=== PATIENT | female | born 1955 | race Two or more races ===

== ENCOUNTER → 2021-07-17 11:16 | Outpatient (BNVA) | payer MEDICARE, SELFPAY | PROVIDERS: PCP Internal Medicine; Visit Provider Dietitian, Registered | DX: E11.9 Type 2 diabetes mellitus without complications (principal) | CPT/HCPCS: 97802 ==

== ENCOUNTER → 2021-09-08 09:14 | Outpatient (BNVA) | payer MEDICARE, SELFPAY | PROVIDERS: PCP Internal Medicine; Visit Provider Dietitian, Registered | DX: E11.9 Type 2 diabetes mellitus without complications (principal) | CPT/HCPCS: 97803 ==

== ENCOUNTER 2022-02-16 17:23 | Outpatient (REF) | payer MEDICARE, SELFPAY ==
[2022-02-16 18:17] LABS: Influenza A PCR NEGATIVE (Negative); Influenza B PCR NEGATIVE (Negative); Resp Syncy Virus RNA Qual PCR NEGATIVE (Negative); SARS COV2 PCR INHOUSE NEGATIVE (Negative)
== END 2022-02-16 17:24 | disposition home or self-care (01) ==
LOC: HO.LNP 17:23
PROVIDERS: Visit Provider Nurse Practitioner Family
DX: Z20.822 Contact with and (suspected) exposure to COVID-19 (principal); J06.9 Acute upper respiratory infection, unspecified
CPT/HCPCS: 0241U

== ENCOUNTER 2022-04-21 12:22 | Outpatient (REF) | payer MEDICARE, SELFPAY ==
--- NOTE | ~2022-04-21 | XR_ITS ---
EXAMINATION: XR CHEST CLINICAL INFORMATION: Acute upper respiratory infection. COMPARISON: None TECHNIQUE: 2 views of the chest were obtained. FINDINGS: No significant abnormality is noted involving the heart, lungs, mediastinum, bony thorax or soft tissues. XR/XR chest 2V IMPRESSION: No acute cardiopulmonary process.
[2022-04-21 16:02] LABS: Influenza A PCR NEGATIVE (Negative); Influenza B PCR NEGATIVE (Negative); Resp Syncy Virus RNA Qual PCR NEGATIVE (Negative); SARS COV2 PCR INHOUSE POSITIVE (Negative)
== END 2022-04-21 12:23 | disposition home or self-care (01) ==
LOC: HO.HMGCX 12:22
PROVIDERS: PCP Internal Medicine; Visit Provider Physician Assistant
DX: Z20.822 Contact with and (suspected) exposure to COVID-19 (principal); J06.9 Acute upper respiratory infection, unspecified
CPT/HCPCS: 0241U; 71046

== ENCOUNTER 2022-06-28 09:59 | Outpatient (REF) | payer MEDICARE, SELFPAY ==
--- NOTE | ~2022-06-28 | XR_ITS ---
EXAMINATION: XR CHEST CLINICAL INFORMATION: Acute upper respiratory infection COMPARISON: None TECHNIQUE: 2 views of the chest were obtained. FINDINGS: No significant abnormality is noted involving the heart, lungs, mediastinum, bony thorax or soft tissues. XR/XR chest 2V IMPRESSION: Unremarkable chest examination.
[2022-06-28 13:09] LABS: Influenza A PCR NEGATIVE (Negative); Influenza B PCR NEGATIVE (Negative); Resp Syncy Virus RNA Qual PCR NEGATIVE (Negative); SARS COV2 PCR INHOUSE NEGATIVE (Negative)
== END 2022-06-28 10:00 | disposition home or self-care (01) ==
LOC: HO.HMGCX 09:59
PROVIDERS: PCP Internal Medicine; Visit Provider Physician Assistant
DX: Z20.822 Contact with and (suspected) exposure to COVID-19 (principal); J06.9 Acute upper respiratory infection, unspecified; R06.2 Wheezing; B34.9 Viral infection, unspecified
CPT/HCPCS: 0241U; 71046

== ENCOUNTER 2024-04-13 11:48 | Outpatient (REF) | payer MEDICARE, SELFPAY ==
[2024-04-13 14:35] LABS: Influenza A PCR NEGATIVE (Negative); Influenza B PCR NEGATIVE (Negative); Resp Syncy Virus RNA Qual PCR NEGATIVE (Negative); SARS COV2 PCR INHOUSE NEGATIVE (Negative)
== END 2024-04-13 11:49 | disposition home or self-care (01) ==
LOC: HO.LNP 11:48
PROVIDERS: PCP Internal Medicine; Visit Provider Physician Assistant
DX: J06.9 Acute upper respiratory infection, unspecified (principal)
CPT/HCPCS: 0241U; 99202

== ENCOUNTER 2024-04-13 11:48 | Outpatient (AMB) | payer MEDICARE, SELFPAY ==
--- NOTE | 2024-04-13 11:51 | MHC.OFFWIV ---
Intake Vital Signs 04/13/24 11:52 Weight 173 lb BP 130/80 Blood Pressure Location Rt brachial Position Sitting Pulse 79 Pulse Source Pulse Oximeter Pulse Oximetry (%) 97 Oxygen Delivery Method Room Air Intake Visit Reasons: trouble swallowing, chest conges, diffic breath Intake Note: Patient here for chest congestion, difficulty breathing and trouble swallowing (states its the bone that hurts) Patient Tobacco Use Status: Former Tobacco user Allergies IV Contrast Allergy (Intermediate, Uncoded 04/13/24 11:53) Vomiting Do you need a note to return to daycare/school/sports/work: No HPI HPI Comments History of Present Illness Details Patient is a 68-year-old female complaining of 4 days of a sore throat, swollen glands in her neck, pain with swallowing, shortness of breath, wheezing, a dry cough, chest congestion and ear pain. She denies any head congestion, sinus pain or fevers. She states she has a reduced appetite. She did not test at home for COVID. She did not try to take any medications to make herself feel better. She tells me she does have a history of asthma and she thinks she has an albuterol inhaler at home but it is probably . She denies any sick contacts. [facility] Social History Patient Tobacco Use Status: Former Tobacco user Review of Systems Const All systems reviewed & are unremarkable except as noted in HPI and below Physical Exam Vital Signs: Last Vital Signs Pulse 79 04/13/24 11:52 BP 130/80 04/13/24 11:52 Pulse Ox 97 04/13/24 11:52 Oxygen Delivery Method Room Air 04/13/24 11:52 Const General: cooperative, healthy appearing, comfortable and no acute distress Orientation/consciousness: patient oriented x3 Limitations: no limitations HEENT Head: Yes normal to inspection Ears: hearing grossly normal bilaterally, external ears normal and TM's normal bilaterally General nose exam: Normal external nose present, Normal nares present and No nasal discharge present Face and sinus: Yes normal facial exam and Yes sinuses nontender Mouth: Normal oral and palatal mucosa present and moist mucous membranes Throat: Yes tonsils normal, Yes uvula midline and Yes posterior oropharynx abnormal (Erythema) Eyes General: appearance normal, both eyes and all related structures Neck Neck: Yes normal visual inspection, Yes full ROM, Yes trachea midline, No anterior neck swelling, Yes lymphadenopathy (submandibular and tonsillar) and No submandibular swelling Resp Effort & Inspection: normal respiratory effort, able to speak in complete sentences, Actively coughing, no respiratory distress, not tachypneic, no tripod positioning and no use of accessory muscles Auscultation: wheezes expiratory wheezes, posterior and throughout Cardio Rate: regular rate Rhythm: regular rhythm Heart sounds: normal S1 and S2 Skin General skin exam: no rashes or lesions noted Neuro General: patient oriented x3 Extrem General: Yes normal to inspection and Yes no clubbing, cyanosis or edema Assessment & Plan Assessment & Plan (1) URI (upper respiratory infection): Code(s): J06.9 - Acute upper respiratory infection, unspecified Qualifiers: URI type: unspecified URI Qualified Code(s): J06.9 - Acute upper respiratory infection, unspecified Plan: Vital signs are stable, patient well-appearing, lung sounds did have expiratory wheezes so I will give her a burst of prednisone. Refilled her inhaler as she is not sure if hers is and sent Terry Connors for her cough. I also sent flu COVID and RSV testing Plan see above Orders: Orders SARS-CoV2/FLU/RSV Today J06.9 - Acute upper respiratory infection, unspecified Medications: New prednisone 40 mg (2 x 20 mg) PO DAILY 10 tabs 0RF benzonatate 200 mg PO TID PRN 14 caps 0RF cough albuterol sulfate 90 mcg/actuation 2 puffs inhalation Q6H PRN 8.5 grams 0RF shortness of breath or wheezing or cough Coding Level of Care Code New Pt Level 4 (17631) Diagnoses Upper respiratory tract infection, unspecified type J06.9 URI type: unspecified URI
[2024-04-13 11:52] VITALS: BP 130/80; PULSE 79; O2SAT 97
== END 2024-04-13 12:18 | disposition home or self-care (01) ==
PROVIDERS: PCP Internal Medicine; Visit Provider Physician Assistant
DX: J06.9 Acute upper respiratory infection, unspecified (principal)

== ENCOUNTER → 2024-12-10 09:21 | Outpatient (BNV) | payer OTHER, SELFPAY | PROVIDERS: Emergency Provider Emergency Medicine; PCP Internal Medicine; Visit Provider Radiology Diagnostic Radiology | DX: R22.31 Localized swelling, mass and lump, right upper limb (principal) | CPT/HCPCS: 73080 ==

== ENCOUNTER 2024-12-10 09:31 | Emergency (ER) | payer MEDICARE, SELFPAY ==
--- NOTE | ~2024-12-10 | XR_ITS ---
EXAMINATION: XR ELBOW, RIGHT CLINICAL INFORMATION: pain COMPARISON: None available. TECHNIQUE: AP, lateral, and oblique views of the right elbow. FINDINGS: No fracture, dislocation, or suspicious bone lesion. There is normal alignment. There is no joint effusion. There are mild to moderate degenerative changes in the radio trochlear and ulnar capitellar joints. The epicondyles appear normal. There is soft tissue swelling overlying the olecranon. XR/XR elbow RT min 3V IMPRESSION: 1. No acute bony abnormalities. 2. Soft tissue swelling overlying the olecranon. Electronically signed by: Irwin Mathias MD 12/10/2024 10:27 AM EDT
[2024-12-10 09:46] VITALS: BP 134/78; PULSE 75; RESP 16; TEMP 37.1; O2SAT 98; BMI 30.3
--- NOTE | 2024-12-10 10:24 | ED.EXTPRO ---
HPI - Extremity Problem General Chief complaint: Extremity Injury, Upper Stated complaint: Fall yesterday - R elbow injury Time Seen by Provider: 12/10/24 10:18 Source: patient Mode of arrival: ambulatory Limitations: no limitations History of Present Illness ED Provider: Beatrice Singh PA-C HPI Narrative: 69 yo female presents to the ER for evaluation of right elbow pain s/p mechanical fall yesterday. Patient was at a [employer] party yesterday, carrying a pie when she missed a step and tripped, falling forward and landing on her right elbow. She did not hit her head or lose consciousness. She is on anticoagulation. She sustained a small laceration to the elbow. Nurses at the constitution party tender to her wound and applied ice. Bleeding was controlled. No other injuries. Patient woke up this morning with ongoing right elbow pain, pain with extension and full flexion, although she is able to perform full range of motion but with discomfort. She denies any right shoulder pain and right wrist pain. No numbness or tingling. MD Complaint: joint pain Onset (ago): day(s) (1) Pain Consistency: constant Location: right and elbow Severity scale (1-10): 7 Quality: aching Radiation: none Relieving factors: immobilization Exacerbating factors: range of motion and palpation Associated symptoms: denies other symptoms Related Data Home Medications ?Medication ?Instructions ?Recorded ?Confirmed atorvastatin 10 mg tablet 10 mg PO DAILY 02/16/22 04/21/22 lisinopril 20 mg tablet 20 mg PO DAILY 02/16/22 04/21/22 omeprazole 20 mg capsule,delayed 20 mg PO DAILY PRN 02/16/22 04/21/22 release dulaglutide 0.75 mg/0.5 mL mg subcut 06/28/22 [facility] Previous Rx's ?Medication ?Instructions ?Recorded albuterol sulfate 90 mcg/actuation 1 inh inhalation QID PRN shortness 09/28/22 aerosol inhaler (Ventolin HFA) of breath or wheezing #8.5 grams albuterol sulfate 90 mcg/actuation 2 puff inhalation Q6H PRN 04/13/24 aerosol inhaler shortness of breath or wheezing or cough #8.5 grams benzonatate 200 mg capsule 200 mg PO TID PRN cough #14 caps 04/13/24 prednisone 20 mg tablet 40 mg (2 x 20 mg) PO DAILY #10 tabs 04/13/24 Allergies Allergy/AdvReac Type Severity Reaction Status Date / Time IV Contrast Allergy Intermediate Vomiting Uncoded 12/10/24 09:48 Review of Systems Review of Systems: Yes all other systems are reviewed and are negative [facility] Social History Social History Patient Tobacco Use Status: Former Tobacco user Advance Directives: No Advance Directives Information Provided: Yes Do you have a plan to hurt others: No Plan Physical Exam Vital Signs: Vital Signs: Last Vital Signs Temp 98.8 F 12/10/24 09:46 Pulse 75 12/10/24 09:46 Resp 16 12/10/24 09:46 BP 134/78 12/10/24 09:46 Pulse Ox 98 12/10/24 09:46 O2 Del Method Room Air 12/10/24 09:46 BMI result Body Mass Index 30.3 Appearance: Alert. Oriented X3. No acute distress. HEENT: normal inspection CVS: Normal heart rate and rhythm. Pulses normal. Respiratory: No respiratory distress. Skin: Skin warm and dry. Normal skin color. Normal skin turgor. No rashes. Extremities: Right elbow with a 1.5 cm superficial laceration with no active bleeding, mild excoriations and swelling of the soft tissues of this right elbow. There is diffuse tenderness, no point tenderness of the elbow. She has full passive and active range of motion of the elbow with some discomfort upon full flexion and extension. No crepitus palpable. No deformity. Neurovascularly intact distally. Equal donor recruiter strength bilaterally. Normal palpation of the right shoulder. Neuro: Oriented X 3. No motor deficit. No sensory deficit. Medical Decision Making Medical Decision Making MDM Narrative: 69-year-old right-hand dominant female presenting to the ER for evaluation of right elbow pain after a mechanical fall yesterday. She fell onto the elbow, sustaining a small laceration of which bleeding is controlled. Tdap is up-to-date. She has no other injuries. Pain on palpation of the elbow with no point tenderness, no crepitus, no gross deformity. Small laceration is starting to epithelialize, no active bleeding. Steri-Strips were applied after wound was cleansed with alcohol. No signs of infection at this time. X-ray reviewed, no visible fractures. There is some soft tissue swelling. Ice was applied. Patient requesting a sling for immobilization. Patient counseled on use of sling. Motrin and Tylenol, ice and supportive care discussed. She was encouraged follow-up with her primary care doctor. She is stable for discharge home Differential Diagnosis Differential Diagnoses: The differential diagnosis associated with the presentation includes Elbow fracture, elbow contusion, open fracture, superficial laceration Independent Interpretation I performed an independent interpretation of an: Plain X-Ray Interpretation: No visible fracture Radiology Impression Discussion of test interpretation with radiology: I have reviewed the radiologist's reading. Radiologist Impression: XR/XR elbow RT min 3V IMPRESSION: 1. No acute bony abnormalities. 2. Soft tissue swelling overlying the olecranon. Prescription Management I considered prescription management with: Pain Medication Procedures Laceration Laceration 1: Side (If applicable): right Size (cm): 1.5 Description: linear Depth: simple, single layer Pre-repair: wound explored and irrigated extensively Skin layer closed with: other (steri strips x3) Orthopedic Splinting/Casting Injury #1: Side: right Upper Extremity Injury Location: elbow Upper Extremity Immobilizer: Neville wrap Discharge Plan Discharge Clinical Impression: Superficial laceration Contusion of elbow, right Qualifiers: Encounter type: initial encounter Qualified Code(s): S50.01XA - Contusion of right elbow, initial encounter Patient Disposition: Home, Self-Care Instructions: Contusion in Adults (ED) Additional Instructions: Your x-ray today did not show any fractures. Three Steri-Strips were placed over your small laceration. These will fall off on their own. Do not pull them off. Do not get the wound wet for the next 24 hours. After that you can shower then pat the area dry. You can wear the sling as needed for comfort for the next 48 hours. It is important that you work on range of motion as pain allows. Recommend Motrin and Tylenol as needed for pain. Recommend icing the area several times per day for the next 48 hours. Follow-up with primary care doctor. If you develop new or worsening symptoms call 911 or come back to the ER for further evaluation. XR/XR elbow RT min 3V IMPRESSION: 1. No acute bony abnormalities. 2. Soft tissue swelling overlying the olecranon. Prescriptions: No Action Trulicity 0.75 mg/0.5 mL pen injector subcut omeprazole 20 mg capsule,delayed release(DR/EC) 20 mg PO DAILY PRN lisinopril 20 mg tablet 20 mg PO DAILY atorvastatin 10 mg tablet 10 mg PO DAILY albuterol sulfate [Ventolin HFA] 90 mcg/actuation HFA aerosol inhaler 1 inh inhalation QID PRN (Reason: shortness of breath or wheezing) Qty: 8.5 1RF prednisone 20 mg tablet 40 mg PO DAILY Qty: 10 0RF benzonatate 200 mg capsule 200 mg PO TID PRN (Reason: cough) Qty: 14 0RF albuterol sulfate 90 mcg/actuation HFA aerosol inhaler 2 puff inhalation Q6H PRN (Reason: shortness of breath or wheezing or cough) Qty: 8.5 0RF Print Language: French
--- OUTSIDE RECORDS SUMMARY | 2024-12-10 10:53 | XMS_ITS | Clinical Summary ---
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 Katarina 21 mg/dL LAB CHEMISTRY METHOD 06/28/2024 11:00 AM [facility] Non HDL Chol. (LDL+VLDL) 116 <145 mg/dL LAB CHEMISTRY METHOD 06/28/2024 11:00 AM [facility] Chol/HDL Ratio 3.2 0.0 - 4.4 LAB CHEMISTRY METHOD 06/28/2024 11:00 AM [facility] Blood Venous blood specimen / Unknown Venipuncture / Unknown 06/28/2024 8:37 AM EST 06/28/2024 8:37 AM EST us Vinod Villanueva MD LAB BLOOD ORDERABLES Final Result [facility] [address] [place] [address], * (ABNORMAL) Microalbumin creatinine urine ratio (06/28/2024 8:37 AM EST) Creatinine, Urine 249.0 mg/dL LAB CHEMISTRY METHOD 06/28/2024 11:20 AM [facility] Microalb, Ur 76.7(H) 0.0 - 29.0 mg/L LAB CHEMISTRY METHOD 06/28/2024 11:20 AM [facility] Microalb/Crea t Ratio 31(H) <30 mg/g creat LAB CHEMISTRY METHOD 06/28/2024 11:20 AM [facility] Urine Urine specimen obtained by clean catch procedure / Unknown Non-blood Collection / Unknown 06/28/2024 8:37 AM EST 06/28/2024 8:37 AM EST us Vinod Villanueva MD LAB URINE ORDERABLES Final Result [facility] [address] [place] [address], [place] [phone] * (ABNORMAL) Basic metabolic panel (06/28/2024 8:37 AM EST) Sodium 136 133 - 145 mmol/L LAB CHEMISTRY METHOD 06/28/2024 11:00 AM [facility] Potassium 4.6 3.5 - 5.5 mmol/L LAB CHEMISTRY METHOD 06/28/2024 11:00 AM [facility] Chloride 103 96 - 110 mmol/L LAB CHEMISTRY METHOD 06/28/2024 11:00 AM [facility] CO2 27 21 - 32 mmol/L LAB CHEMISTRY METHOD 06/28/2024 11:00 AM [facility] Anion Gap 6 3 - 11 LAB CHEMISTRY METHOD 06/28/2024 11:00 AM [facility] Glucose 178(H) 70 - 100 mg/dL LAB CHEMISTRY METHOD 06/28/2024 11:00 AM [facility] BUN 12 5 - 25 mg/dL LAB CHEMISTRY METHOD 06/28/2024 11:00 AM [facility] Creatinine 0.81 0.50 - 1.10 mg/dL LAB CHEMISTRY METHOD 06/28/2024 11:00 AM [facility] eGFR 79 >=60 mL/min/1. 73m2 LAB CHEMISTRY METHOD 06/28/2024 11:00 AM [facility] Comment:Calculation based on the Chronic Kidney Disease Epidemiology Collaboration (CKD-EPI) equation refit without adjustment for race. BUN/Creatinine Ratio 14.8 LAB CHEMISTRY METHOD 06/28/2024 11:00 AM EST [facility] Calcium 9.3 8.5 - 10.5 mg/dL LAB CHEMISTRY METHOD 06/28/2024 11:00 AM EST [facility] Blood Venous blood specimen / Unknown Venipuncture / Unknown 06/28/2024 8:37 AM EST 06/28/2024 8:37 AM EST us Vinod Villanueva MD LAB BLOOD ORDERABLES Final Result [facility] ([facility]) [facility] [address] [place] [address], [place] [phone] * DXA BONE DENSITY STUDY 1+ SITS AXIAL SKEL (08/30/2023 10:11 AM EDT) Anatomical Region Laterality Modality Bone Densitometr y 01/10/2023 8:30 AM EDT Narrative 08/30/2023 7:32 PM EDT BONE DENSITY SCAN (DEXA): FINDINGS: Lumbar Spine T-score is -1.9. (SD relative to 20-29 y/o adult) Z-score is 0.1. (SD relative to age matched peers) This is considered osteopenia by WHO criteria. Left Hip T-score is -1.2. Z-score is 0.5. This is considered osteopenia by WHO criteria. Comparison exam(s): None. Lateral survey view of the thoracolumbar spine shows no significant compression deformities. IMPRESSION: IMPRESSION: Osteopenia by WHO criteria. This patient has an 8.4% risk of major osteoporotic fracture and a 0.8% risk of hip fracture over the next 10 years. (World Health Organization Fracture Risk Assessment) The [facility] Department of Internal Medicine recommends using National Osteoporosis Foundation (NOF) guidelines in treatment decisions related to osteoporosis. NOF guidelines suggest considering treatment for postmenopausal women and men aged 50 or older presenting with the following: History of hip or vertebral fracture. T-score = -2.5 (DXA) at the femoral neck, total hip, or spine, after appropriate evaluation to exclude secondary causes. Low bone mass (T-score between -1.0 and -2.5 at the femoral neck or spine) AND a 10-year probability of a hip fracture = 3% OR a 10-year probability of a major osteoporosis-related fracture = 20% based on the [place]-adapted WHO algorithm Please note that all treatment decisions require clinical judgment and consideration of individual patient factors, including patient preferences, co-morbidities, previous drug use, risk factors not captured in the FRAX model (e.g., frailty, falls, vitamin D deficiency, increased bone turnover, interval significant decline in bone density) and possible under- or over-estimation of fracture risk by FRAX. Optional alternative screening schedule based on darin Valero., [facility] June 24, 2011 for patients with osteopenia (based on hip BMD T-score) is as follows: * advanced osteopenia (T scores -2.00 to -2.49), BMD testing every year * moderate osteopenia (T scores -1.50 to -1.99), BMD testing every 5 years mild osteopenia or normal BMD (T scores -1.50 and higher), BMD testing every 15 years Procedure Note Claudia Howe MD - 01/23/2024 BONE DENSITY SCAN (DEXA): FINDINGS: Lumbar Spine T-score is -1.9. (SD relative to 20-29 y/o adult) Z-score is 0.1. (SD relative to age matched peers) This is considered osteopenia by WHO criteria. Left Hip T-score is -1.2. Z-score is 0.5. This is considered osteopenia by WHO criteria. Comparison exam(s): None. Lateral survey view of the thoracolumbar spine shows no significantcompression deformities. IMPRESSION: IMPRESSION: Osteopenia by WHO criteria. This patient has an 8.4% risk of majorosteoporotic fracture and a 0.8% risk of hip fracture over the next 10 years. (World HealthOrganization Fracture Risk Assessment) The [facility] Department of Internal Medicine recommendsusing National Osteoporosis Foundation (NOF) guidelines in treatment decisions related toosteoporosis. NOF guidelines suggest considering treatment for postmenopausal women and menaged 50 or older presenting with the following: History of hip or vertebral fracture. T-score = -2.5 (DXA) at the femoral neck, total hip, or spine, afterappropriate evaluation to exclude secondary causes. Low bone mass (T-score between -1.0 and -2.5 at the femoral neck or spine)AND a 10-year probability of a hip fracture = 3% OR a 10-year probability of a majorosteoporosis-related fracture = 20% based on the [place]-adapted WHO algorithm Please note that all treatment decisions require clinical judgment andconsideration of individual patient factors, including patient preferences, co- morbidities,previous drug use, risk factors not captured in the FRAX model (e.g., frailty, falls, vitaminD deficiency, increased bone turnover, interval significant decline in bone density) andpossible under- or over-estimation of fracture risk by FRAX. Optional alternative screening schedule based on darin Valero., [facility] for patients with osteopenia (based on hip BMD T-score) is as follows: * advanced osteopenia (T scores -2.00 to -2.49), BMD testing every year * moderate osteopenia (T scores -1.50 to -1.99), BMD testing every 5years mild osteopenia or normal BMD (T scores -1.50 and higher), BMD testingevery 15 years Mey Torres MD [facility] DXA PROCEDURES Final Result * Hepatitis C Screening (03/22/2023) [facility] Hepatitis C Screening abstacted Historical Provider HEALTH MAINTENANCE Final Result * Colonoscopy (05/28/2021) Pathologist [facility] Colonoscopy no interpretation , abstracted Anatomical Region Laterality Modality Other Historical Provider HEALTH MAINTENANCE Final Result from Last 3 Months or Most Recently Relevant to Health Maintenance Insurance [employer] Care Teams [employer] Relationship Specialty Start Date End Date Vinod Villanueva MD [address] [place] [id number] PCP - General 03/22/23
--- OUTSIDE RECORDS SUMMARY | 2024-12-10 10:53 | XMS_ITS | Encounter Summary ---
Author Organization [facility] Address [address] [place] [address] Care Team Providers Care Mid Level Clinician Name Role Phone Xuan Pelayo MD Primary Care Provider [phone] Mey Gil MD Primary Care Prov ider Vinod Villanueva Primary Care Provider [phone] Encounter Details Date Type Department Care Team Description 05/28/2021 Hospital Medical Records [address] [place] [address] Tashi Smith MD [address] [place] [address] [address] [place] [address] Social History Tobacco Use Types Packs/Day Years Used Date Smoking Tobacco: Former Passive Smoke Exposure: Past Smokeless Tobacco: Never Alcohol Use Standard Drinks/Week Comments Not Currently 0 (1 standard drink = 0.6 oz pur e alcohol) occasionally Sex Assigned at Date Recorded Not on file Job Start Date Occupation Industry Not on file Not on file Not on file COVID-19 Exposure Response Date Recorded In the last month, have you been in contact with someone who was confirmed or suspected to have Coronavirus / COVID-19? No / Unsure 05/18/2021 10:00 AM EST documented as of this encounter Plan of Treatment Not on file documented as of this encounter Visit Diagnoses Not on filedocumented in this encounter Care Teams Mid Level Clinician Relationship Specialty Start Date End Date Xuan Pelayo MD PCP - General Internal Medicine 04/07/21 02/09/22 Mey Gil MD [address] [place] [address] PCP - General Internal Medicine 02/10/22 03/21/23 Vinod Villanueva [address] [place] [address] PCP - General Internal Medicine 03/22/23 documented as of this encounter
--- OUTSIDE RECORDS SUMMARY | 2024-12-10 10:53 | XMS_ITS | Patient Health Record ---
Author Organization [facility] Address [address] [place] [address] Care Team Providers Care Draw Furnace Tender Name Role Phone Blair Chanel MD Primary Care Provider Luis Mckeon [phone] Allergies Allergen (clinical drug ingredient) Drug/Non Drug Allergy documented on EMR Reaction Allergy Type Onset Date Status aspirin Aspirin Unknown Drug Allergy Active Penicillin dizzy, nausea Drug Allergy Ac tive latex Unknown Drug Allergy Active Reason For Referral No Information Medications Medication SIG (Take, Route, Fr equency, Duration) Notes Start Date End Date Status FLUoxetine HCl 20 MG TAKE 1 TABLET BY MO UTH DAILY Oral; Duration: 30 Active Omeprazole 20 MG TAKE 1 TABLET BY LAURA TH TWICE DAILY Oral; Duration: 14 Active Aleve 220 MG 1 tablet Orally every 12 hrs Active Ciclopirox 0.77% as directed applied topically twice a day; Duration: until resolved 7-14 days 02/03/2011 Active traMADol HCl 50 MG TAKE 1 TABLET BY LAURA TH EVERY 6 HOURS NEEDED FOR PAIN Oral; Duration: 15 Active Problems Problem Type SNOMED Code ICD Code Onset Dates Problem Status W/U Status Risk Notes Problem Foot ulcer (98183890) Ulcer of Other Part of Foot (707.15) Active confirmed Problem Disorder of joint of ankle and/or foot (698214369) Arthritis - Degenerative (719.97) Active confirmed Problem Hallux valgus (768051007) Hallux Valgus (735.0) Active confirmed Problem Hammer toe (548062360) Hammer toe (735.4) Active confirmed Problem Pain in limb (60374615) Pain in Limb (729.5) Active confirmed Problem Exostosis (66282136) Exostosis (726.91) Active confirmed Plan Of Treatment Pending Test Test Name Order Date X ray : Foot, left 3V 02/03/2011 X ray : Foot, right 3V 10/25/2013 X ray : Foot, right 3V 02/03/2011 43872- Debride <25 sq cm 04/04/2014 25803- Debride <25 sq cm 10/25/2013 Insurance Providers Payer Name Payer Address Payer Phone Subscriber Number Group Number Insured Name Patient Relationship to Insured Coverage Start Date Coverage End Date [facility] [address] [place] [address] [id number] Self - patient is the insured Medical (General) History Medical History History ICD Code chicken pox measles diverticulitis depression back, hip, knee pain Arthritis anxiety asthma Mumps Reflux Hiatal hernia
[2024-12-10 11:02] VITALS: BP 134/78; PULSE 75; RESP 16; TEMP 37.1; O2SAT 98
== END 2024-12-10 11:02 | disposition home or self-care (01) ==
PROVIDERS: Emergency Provider Emergency Medicine; PCP Internal Medicine
DX: S51.011A Laceration without foreign body of right elbow, initial encounter (principal); S50.01XA Contusion of right elbow, initial encounter; M79.601 Pain in right arm; W01.0XXA Fall on same level from slipping, tripping and stumbling without subsequent striking against object, initial encounter; Y93.01 Activity, walking, marching and hiking; Y92.9 Unspecified place or not applicable; Y99.8 Other external cause status; Z79.899 Other long term (current) drug therapy; Z87.891 Personal history of nicotine dependence
CPT/HCPCS: 12001; 73080; 99282; 99283